=== PATIENT | male | born 1960 | race Caucasian/White ===

== ENCOUNTER 2019-05-04 22:26 | Observation (INO) | payer OTHER ==
[~2019-05-04] VITALS: Ht 182.9 cm; Wt 132.5 kg
[~2019-05-04 22:26] MED LIST: DEXT30TA2 PO; METO100T5 PO; methadone PO; tums
--- NOTE | 2019-05-04 22:37 | PHYS DOC ---
Past History Past Medical History: CAD, GERD, High Cholesterol, Hypertension, Other Past Surgical History: Angioplasty, Tonsillectomy Smoking: Cigarettes, Greater than 1 pack/day Alcohol Use: None Drug Use: None Adult General Chief Complaint Chief Complaint: CHEST PAIN.. " I ve been having some discomfort the last two days... but tonight it was more uncomfortable... I had some stents .. two placed... at [facility].. Dr Wilson...maybe 4 to 5 yrs ago.. I think in the Lt big ve ssel... But has not had any problems,,,... the taking a daily aspirin but haven't done that.... I did quit smoking..." HPI HPI Patient is a 58 year old male who presents with above hx and complaints of chest pain. Chest pain is somewhat central. No radiation to the neck or shoulder. Patient denies any trauma. Patient does have a history of hypertension and elevated lipids. No recent travel outside can see area. No history immunosuppression. Normally follows with Dr. Lay. Has follow with the cardiac group at [facility]. Review of Systems Review of Systems Constitutional: Denies fever or chills [] Eyes: Denies change in visual acuity, redness, or eye pain [] HENT: Denies nasal congestion or sore throat [] Respiratory: Denies cough or shortness of breath [] Cardiovascular: No additional information not addressed in HPI [] GI: Denies abdominal pain, nausea, vomiting, bloody stools or diarrhea [] : Denies dysuria or hematuria [] Musculoskeletal: Denies back pain or joint pain [] Integument: Denies rash or skin lesions [] Neurologic: Denies headache, focal weakness or sensory changes [] Endocrine: Denies polyuria or polydipsia [] All other systems were reviewed and found to be within normal limits, except as documented in this note. Family History Family History Noncontributory to presentation- history of hypertension Current Medications Current Medications See nursing for home meds Allergies Allergies Allergies Coded Allergies Type Severity Reaction Last Updated Verified No Known Drug Allergies 03/03/13 No Physical Exam Physical Exam Constitutional: Moderate acute distress, non-toxic appearance. Rates chest discomfort at 4 HENT: Normocephalic, atraumatic, bilateral external ears normal, oropharynx moist, no oral exudates, nose normal. [] Eyes: PERRLA, EOMI, conjunctiva normal, no discharge. [] Neck: Normal range of motion, no tenderness, supple, no stridor. [] Cardiovascular:Heart rate regular rhythm, no murmur [PMI slightly to left. Does have occasional multifocal PVCs on monitor and occasional dropped conduction equal/ventricle on the bedside monitor.. Lungs & Thorax: Bilateral breath sounds equal at apex on auscultation [] Abdomen: Bowel sounds normal, soft, no tenderness, no masses, no pulsatile masses. [] Obese. Skin: Warm, dry, no erythema, no rash. [] Back: No tenderness, no CVA tenderness. [] Extremities: No tenderness, no cyanosis, no clubbing, ROM intact, no edema. [] No cording in legs. Neurologic: Alert and oriented X 3, normal motor function, normal sensory function, no focal deficits noted. [] Psychologic: Affect anxious, judgement normal, mood normal. [] EKG EKG I interpretation EKG shows a sinus rhythm at 74 bpm. Does have left axis. An anterior fascicular block. But no findings acute STEMI of contralateral changes.[] Radiology/Procedures Radiology/Procedures [][place] [id number] IMAGING REPORT Signed PATIENT: MARTHA EL ACCOUNT: [id number] : 1960 LOCATION: ER AGE: 58 SEX: M EXAM STATUS: REG ER ORD. PHYSICIAN: YUMIKO SOLO MD REASON: Chest pain, short of air PROCEDURE: CHEST PA & LATERAL Study: CHEST PA LATERAL Indication: Chest pain. Shortness of air. Comparison: 03/03/2013 Findings: Similar configuration of the cardiomediastinal silhouette and tera. The right hemidiaphragm is again noted to be elevated. Streaky densities at both lung bases most typical of atelectasis. No confluent infiltrate. No pleural effusion or pneumothorax. Impression: No acute radiographic abnormality of the chest. Similar prominence of the cardiomediastinal silhouette and asymmetric elevation of the right hemidiaphragm with mild basilar volume loss. Electronically signed by: PABLITO MORTON MD (05/04/2019 11:02 PM) [id number] DICTATED AND SIGNED BY: PABLITO MORTON MD DATE: 05/04/19 CC: ANA LAY MD; YUMIKO SOLO MD ~ Course & Med Decision Making Course & Med Decision Making Pertinent Labs and Imaging studies reviewed. (See chart for details) Heart score equals 5-[address] Garner for cardiology consult. Impression: 1. Chest Pain 2. History of hypertension 3. History of coronary artery disease-stents 2 4. Elevated glucose-and 164 5. Hypo-magnesium 1.7 Note there could be Omissions duplications because of computer shut down during processing and treatment of this patient. [] Dragon Disclaimer Dragon Disclaimer This electronic medical record was generated, in whole or in part, using a voice recognition dictation system. Departure Departure: Disposition: 01 HOME/RESIDENCE PRIOR TO ADM Condition: STABLE Referrals: ANA LAY MD (PCP) Dragon Disclaimer This chart was dictated in whole or in part using Voice Recognition software in a busy, high-work load, and often noisy Emergency Department environment. It may contain unintended and wholly unrecognized errors or omissions. YUMIKO SOLO MD May 04, 2019 22:37
[2019-05-04] MEDS ORDERED: ASPIRIN 81 MG TAB.CHEW PO ONE (22:45)
[2019-05-04] MEDS ORDERED: ENOXAPARIN ** NOTE DOSE ** SYRINGE SQ ONE (23:00)
--- NOTE | 2019-05-04 23:05 | RAD ---
Study: CHEST PA LATERAL Indication: Chest pain. Shortness of air. Comparison: 03/03/2013 Findings: Similar configuration of the cardiomediastinal silhouette and tera. The right hemidiaphragm is again noted to be elevated. Streaky densities at both lung bases most typical of atelectasis. No confluent infiltrate. No pleural effusion or pneumothorax. Impression: No acute radiographic abnormality of the chest. Similar prominence of the cardiomediastinal silhouette and asymmetric elevation of the right hemidiaphragm with mild basilar volume loss. Electronically signed by: PABLITO MORTON MD (05/04/2019 11:02 PM) [id number]
[2019-05-04 23:10] LABS: BASO # 0.1 x10^3/uL (0.0-0.2); BASO % 1 % (0-3); EOS # 0.2 x10^3/uL (0.0-0.7); EOS % 3 % (0-3); HEMATOCRIT 49.5 % (39.0-53.0); HEMOGLOBIN 16.9 g/dL (13.0-17.5); LYMPH % 31 % (24-48); MEAN CORPUSCULAR HEMOGLOBIN 31 pg (25-35); MEAN CORPUSCULAR HGB CONC 34 g/dL (31-37); MEAN CORPUSCULAR VOLUME 91 fL (79-100); MONO # 0.6 x10^3/uL (0.0-1.1); MONO % 7 % (0-9); NEUT # 5.9 x10^3uL (1.8-7.7); NEUT % 60 % (31-73); PLATELET COUNT 233 x10^3/uL (140-400); RED BLOOD COUNT 5.43 x10^6/uL (4.30-5.70); RED CELL DISTRIBUTION WIDTH 14.4 % (11.5-14.5); WHITE BLOOD COUNT 9.8 x10^3/uL (4.0-11.0)
[2019-05-04 23:18] LABS: CREATININE 1.3 mg/dL (0.7-1.3); GFR 56.7; POTASSIUM 4.1 mmol/L (3.5-5.1)
[2019-05-04] MEDS ORDERED: NITROGLYCERIN OINT 1 GM PACKET. TP ONE (23:30)
[2019-05-04] MEDS ORDERED: FAMOTIDINE 20 MG/2 ML VIAL IVP ONE (23:30)
[2019-05-04 23:32] LABS: ALBUMIN 3.7 g/dL (3.4-5.0); DIRECT BILIRUBIN 0.1 mg/dL (0.0-0.2); MAGNESIUM 1.7 mg/dL (1.8-2.4); TOTAL BILIRUBIN 0.4 mg/dL (0.2-1.0); TOTAL PROTEIN 7.2 g/dL (6.4-8.2)
[2019-05-04] MEDS: IV RINGERS SOLUTION,LACTATED 1,000 ML IV SCH (23:33)
--- NOTE | 2019-05-04 23:41 | EKG ---
[address] [address] Test Date: 2019-05-04 Test Time: 22:36:20 Pat Name: MARTHA EL Department: Room: Gender: M [employer] Worker: : 1960 Requested By: YUMIKO SOLO Order Number: [id number] Reading MD: Measurements Intervals [place] Rate: 74 P: 56 CT: 178 QRS: -70 QRSD: 108 T: 2 QT: 390 QTc: 438 Interpretive Statements SINUS RHYTHM ABNORMAL LEFT AXIS DEVIATION R-S TRANSITION ZONE IN V LEADS DISPLACED TO THE LEFT LEFT ANTERIOR FASCICULAR BLOCK QRS(T) CONTOUR ABNORMALITY CONSIDER INFERIOR INFARCT ABNORMAL ECG RI6.01 No previous ECG available for comparison
[2019-05-04 23:58] LABS: BARBITURATES NEG (NEG); BENZODIAZEPINES NEG (NEG); CANNABINOIDS NEG (NEG); COCAINE NEG (NEG); METHADONE NEG (NEG); OPIATES NEG (NEG); PHENCYCLIDINE NEG (NEG)
[2019-05-04 23:59] LABS: BACTERIA,URINE 0 /HPF (0-FEW); BILIRUBIN,URINE NEG (NEG); CLARITY,URINE CLEAR; COLOR,URINE YELLOW; GLUCOSE,URINE 100 mg/dL (NEG); NITRITE,URINE NEG (NEG); RBC,URINE 0 /HPF (0-2); SQUAMOUS EPITHELIAL CELL,UR FEW /LPF; UROBILINOGEN,URINE 0.2 mg/dL (0.2 mg/dL); WBC,URINE OCC /HPF (0-4)
[2019-05-05] MEDS ORDERED: MORPHINE SULFATE 2 MG/ML DISP.SYRIN. IVP PRN
[2019-05-05] MEDS ORDERED: ONDANSETRON PF 4 MG/2 ML VIAL. IVP PRN
[2019-05-05] MEDS ORDERED: ACETAMINOPHEN 325 MG TABLET PO PRN
[2019-05-05] MEDS ORDERED: MAGNESIUM SULFATE 2GM 50 ML IV ONE
[2019-05-05 00:02] LABS: AMPHETAMINE/METHAMPHETAMINE NEG (NEG)
[2019-05-05] MEDS: IV RINGERS SOLUTION,LACTATED 1,000 ML IV SCH (00:12)
[2019-05-05] MEDS ORDERED: MORPHINE SULFATE 2 MG/ML DISP.SYRIN. ONE (00:15)
[2019-05-05 01:22] VITALS: BP 128/77
[2019-05-05] MEDS ORDERED: ATORVASTATIN CA80 MG PO (02:25)
[2019-05-05] MEDS ORDERED: SITA1TAB11 PO (02:25)
[2019-05-05] MEDS ORDERED: TEST200V3 IM (02:25)
[2019-05-05] MEDS ORDERED: METO25TA4 PO (02:25)
[2019-05-05] MEDS ORDERED: IPRATRPIUM/ALBUTEROL 0.5/2.5MG 3 ML NEBU. ONE (05:14)
[2019-05-05 05:26] VITALS: BP 138/78
[2019-05-05] MEDS ORDERED: NITROGLYCERIN OINT 1 GM PACKET. TP ONE (06:00)
[2019-05-05 06:19] LABS: BASO # 0.1 x10^3/uL (0.0-0.2); BASO % 1 % (0-3); EOS # 0.3 x10^3/uL (0.0-0.7); EOS % 3 % (0-3); HEMATOCRIT 46.6 % (39.0-53.0); HEMOGLOBIN 16.2 g/dL (13.0-17.5); LYMPH # 3.8 x10^3/uL (1.0-4.8); LYMPH % 41 % (24-48); MEAN CORPUSCULAR HEMOGLOBIN 32 pg (25-35); MEAN CORPUSCULAR HGB CONC 35 g/dL (31-37); MEAN CORPUSCULAR VOLUME 92 fL (79-100); MONO # 0.5 x10^3/uL (0.0-1.1); MONO % 6 % (0-9); NEUT # 4.6 x10^3uL (1.8-7.7); NEUT % 50 % (31-73); PLATELET COUNT 201 x10^3/uL (140-400); RED BLOOD COUNT 5.06 x10^6/uL (4.30-5.70); RED CELL DISTRIBUTION WIDTH 14.2 % (11.5-14.5); WHITE BLOOD COUNT 9.3 x10^3/uL (4.0-11.0)
[2019-05-05 06:26] LABS: CALCIUM 8.4 mg/dL (8.5-10.1); CREATININE 1.4 mg/dL (0.7-1.3); GFR 52.1; POTASSIUM 3.8 mmol/L (3.5-5.1)
--- NOTE | 2019-05-05 07:55 | PDOC2 ---
JANET LUKE SLAB MILLER OPERATOR 05/05/19 0755: CARDIAC CONSULT DATE OF CONSULT Date Of Consult DATE: 05/05/19 TIME: 07:51 REASON FOR CONSULT Reason for Consult Chest pain HTN CAD REFERRING PHYSICIAN Referring Physician Dr. Naidu SOURCE Source: Chart review, Patient HPI History of Present Illness This is a 58 yo female who presented secondary to chest pain. Patient reports he has been experiencing intermittent central chest pressure for the last 2 days. F requency has been increasing. No specific worsening or exacerbating factors. Pain resolved within a minute or two without intervention. No associated shortness of breath, dizziness, diaphoresis, palpitations, or nausea/vomiting. Patient has a history of CAD s/p PCI/stents in 2013. Previously followed with Dr. Damon. Has not seen water pump assembler or had any cardiac workup since 2014. Patient reports pain to be similar to what he experienced in 2013 when he had PCI/stents. PAST MEDICAL HISTORY Cardiovascular: CAD, HTN Pulmonary: Other (MARIO) GI: GERD Rheumatologic: Gout Endocrine: Diabetes PAST SURGICAL HISTORY Past Surgical History: Tonsillectomy FAMILY HISTORY Family History: Cancer, Heart Disease SOCIAL HISTORY Smoke: No ALCOHOL: none Drugs: None CURRENT MEDICATIONS Current Medications Current Medications Aspirin (Children'S Aspirin) 324 mg 1X ONCE PO Last administered on 05/04/19at 23:33; Start 05/04/19 at 22:45; Stop 05/04/19 at 22:51; Status DC Lactated Ringer's 1,000 ml @ 100 mls/hr Q10H IV Last administered on 05/05/19at 00:12; Start 05/04/19 at 22:38; Stop 05/05/19 at 08:37 Enoxaparin Sodium (Lovenox 120mg Syringe) 120 mg 1X ONCE SQ Last administered on 05/04/19at 23:33; Start 05/04/19 at 23:00; Stop 05/04/19 at 23:01; Status DC Famotidine (Pepcid Vial) 20 mg 1X ONCE IVP Last administered on 05/04/19at 23:33; Start 05/04/19 at 23:30; Stop 05/04/19 at 23:31; Status DC Nitroglycerin (Nitro-Bid Oint) 0.5 inch 1X ONCE TP Last administered on 05/04/19at 23:34; Start 05/04/19 at 23:30; Stop 05/04/19 at 23:31; Status DC Ondansetron HCl (Zofran) 4 mg PRN Q4HRS PRN IVP NAUSEA/VOMITING; Start 05/05/19 at 00:00; Stop 05/05/19 at 23:59 Morphine Sulfate (Morphine 2mg Syringe) 2 mg PRN Q3HRS PRN IVP PAIN Last administered on 05/05/19at 00:32; Start 05/05/19 at 00:00; Stop 05/05/19 at 23:59 Acetaminophen (Tylenol) 650 mg PRN Q4HRS PRN PO FEVER; Start 05/05/19 at 00:00; Stop 05/05/19 at 23:59 Albuterol/ Ipratropium (Duoneb) 3 ml RTQID NEB Last administered on 05/05/19at 05:26; Start 05/05/19 at 08:00; Stop 05/06/19 at 07:59 Famotidine (Pepcid Vial) 20 mg DAILY IVP ; Start 05/05/19 at 09:00 Magnesium Sulfate 50 ml @ 25 mls/hr 1X ONCE IV Last administered on 05/05/19at 00:12; Start 05/05/19 at 00:00; Stop 05/05/19 at 02:54; Status DC Aspirin (Children'S Aspirin) 81 mg DAILYWBKFT PO ; Start 05/05/19 at 08:00 Nitroglycerin (Nitro-Bid Oint) 0.5 inch Q8HRS ONCE TP Last administered on 05/05/19at 05:31; Start 05/05/19 at 06:00; Stop 05/05/19 at 06:01; Status DC Enoxaparin Sodium (Lovenox 120mg Syringe) 120 mg BID SQ ; Start 05/05/19 at 09:00 Metoprolol Tartrate (Lopressor) 25 mg BID PO ; Start 05/05/19 at 09:00 Atorvastatin Calcium (Lipitor) 80 mg QHS PO ; Start 05/05/19 at 21:00 Non-Formulary Medication (Sitagliptin Phos/Metformin Hcl (Janumet 50-1,000 Mg Tablet)) 1 each DAILY PO ; Start 05/05/19 at 09:00; Stop 05/05/19 at 07:12; Status DC Metformin HCl (Glucophage) 500 mg BIDWMEALS PO ; Start 05/05/19 at 08:00 Linagliptin (Tradjenta) 5 mg DAILY PO ; Start 05/05/19 at 09:00 Active Scripts Active Reported Metoprolol Tartrate 25 Mg Tablet 25 Mg PO BID Atorvastatin Calcium 80 Mg Tablet 80 Mg PO QHS Testosterone Cypionate 200 Mg/1 Ml Vial 1 Ml IM Q2WKS Janumet 50-1,000 Mg Tablet (Sitagliptin Phos/Metformin Hcl) 1 Each Tablet 1 Each PO DAILY ALLERGIES Allergies: Coded Allergies: No Known Drug Allergies (Unverified , 03/03/13) ROS Review of Systems 14 point ROS conducted with pertinent positives noted above in HPI PHYSICAL EXAM General: Alert, Oriented X3, Cooperative, No acute distress HEENT: Atraumatic, Mucous membr. moist/pink Lungs: Clear to auscultation, Normal air movement Heart: Regular rate, Normal S1, Normal S2, Other (2/6 systolic murmur ) Abdomen: Soft, No tenderness Extremities: No edema, Normal pulses Skin: No breakdown Neuro: Normal speech, Sensation intact Psych/Mental Status: Mental status NL, Mood NL MUSCULOSKELETAL: Osteoarthritic changes both hands VITALS Vital Signs Vital Signs Date Time Temp Pulse Resp B/P (MAP) Pulse Ox O2 Delivery O2 Flow Rate FiO2 05/05/19 05:31 61 138/78 05/05/19 05:28 96 Room Air 05/05/19 05:26 97.6 18 LABS LABS Laboratory Tests Test 05/04/19 22:50 05/04/19 23:10 05/05/19 05:44 White Blood Count 9.8 x10^3/uL (4.0-11.0) 9.3 x10^3/uL (4.0-11.0) Red Blood Count 5.43 x10^6/uL (4.30-5.70) 5.06 x10^6/uL (4.30-5.70) Hemoglobin 16.9 g/dL (13.0-17.5) 16.2 g/dL (13.0-17.5) Hematocrit 49.5 % (39.0-53.0) 46.6 % (39.0-53.0) Mean Corpuscular Volume 91 fL (79-100) 92 fL (79-100) Mean Corpuscular Hemoglobin 31 pg (25-35) 32 pg (25-35) Mean Corpuscular Hemoglobin Concent 34 g/dL (31-37) 35 g/dL (31-37) Red Cell Distribution Width 14.4 % (11.5-14.5) 14.2 % (11.5-14.5) Platelet Count 233 x10^3/uL (140-400) 201 x10^3/uL (140-400) Neutrophils (%) (Auto) 60 % (31-73) 50 % (31-73) Lymphocytes (%) (Auto) 31 % (24-48) 41 % (24-48) Monocytes (%) (Auto) 7 % (0-9) 6 % (0-9) Eosinophils (%) (Auto) 3 % (0-3) 3 % (0-3) Basophils (%) (Auto) 1 % (0-3) 1 % (0-3) Neutrophils # (Auto) 5.9 x10^3uL (1.8-7.7) 4.6 x10^3uL (1.8-7.7) Lymphocytes # (Auto) 3.0 x10^3/uL (1.0-4.8) 3.8 x10^3/uL (1.0-4.8) Monocytes # (Auto) 0.6 x10^3/uL (0.0-1.1) 0.5 x10^3/uL (0.0-1.1) Eosinophils # (Auto) 0.2 x10^3/uL (0.0-0.7) 0.3 x10^3/uL (0.0-0.7) Basophils # (Auto) 0.1 x10^3/uL (0.0-0.2) 0.1 x10^3/uL (0.0-0.2) Prothrombin Time 10.2 SEC (9.4-11.4) Prothromb Time International Ratio 1.0 (0.9-1.1) Activated Partial Thromboplast Time 24 SEC (23-33) D-Dimer (Melanie) 0.20 mg/L (0.00-0.50) Sodium Level 141 mmol/L (136-145) 141 mmol/L (136-145) Potassium Level 4.1 mmol/L (3.5-5.1) 3.8 mmol/L (3.5-5.1) Chloride Level 104 mmol/L (98-107) 105 mmol/L (98-107) Carbon Dioxide Level 29 mmol/L (21-32) 29 mmol/L (21-32) Anion Gap 8 (6-14) 7 (6-14) Blood Urea Nitrogen 18 mg/dL (8-26) 17 mg/dL (8-26) Creatinine 1.3 mg/dL (0.7-1.3) 1.4 mg/dL (0.7-1.3) Estimated GFR (Cockcroft-Gault) 56.7 52.1 Glucose Level 164 mg/dL (70-99) 145 mg/dL (70-99) Calcium Level 9.0 mg/dL (8.5-10.1) 8.4 mg/dL (8.5-10.1) Magnesium Level 1.7 mg/dL (1.8-2.4) 2.2 mg/dL (1.8-2.4) Total Bilirubin 0.4 mg/dL (0.2-1.0) Direct Bilirubin 0.1 mg/dL (0.0-0.2) Aspartate Amino Transf (AST/SGOT) 21 U/L (15-37) Alanine Aminotransferase (ALT/SGPT) 37 U/L (16-63) Alkaline Phosphatase 64 U/L (46-116) Creatine Kinase 119 U/L (39-308) Troponin I Quantitative < 0.017 ng/mL (0-0.055) YN-Adx-I-Type Natriuretic Peptide 30 pg/mL (0-124) Total Protein 7.2 g/dL (6.4-8.2) Albumin 3.7 g/dL (3.4-5.0) Lipase 109 U/L (73-393) Urine Collection Type Unknown Urine Color Yellow Urine Clarity Clear Urine pH 5.0 Urine Specific [place] 1.025 Urine Protein Neg (NEG-TRACE) Urine Glucose (UA) 100 mg/dL (NEG) Urine Ketones (Stick) Neg mg/dL (NEG) Urine Blood Neg (NEG) Urine Nitrite Neg (NEG) Urine Bilirubin Neg (NEG) Urine Urobilinogen Dipstick 0.2 mg/dL (0.2 mg/dL) Urine Leukocyte Esterase Neg (NEG) Urine RBC 0 /HPF (0-2) Urine WBC Occ /HPF (0-4) Urine Squamous Epithelial Cells Few /LPF Urine Bacteria 0 /HPF (0-FEW) Urine Opiates Screen Neg (NEG) Urine Methadone Screen Neg (NEG) Urine Barbiturates Neg (NEG) Urine Phencyclidine Screen Neg (NEG) Urine Amphetamine/Methamphetamine Neg (NEG) Urine Benzodiazepines Screen Neg (NEG) Urine Cocaine Screen Neg (NEG) Urine Cannabinoids Screen Neg (NEG) Urine Ethyl Alcohol Neg (NEG) ECHOCARDIOGRAM Echocardiogram <Conclusion> The left ventricle is normal size. The left ventricular systolic function is normal and the ejection fraction is within normal range. The Ejection Fraction is 50-55%. There is no significant aortic valvular stenosis. Doppler and Color Flow revealed no significant aortic regurgitation. Doppler and Color Flow revealed no mitral valve regurgitation noted. Doppler and Color Flow revealed no tricuspid valve regurgitation noted. There is no evidence of significant pericardial effusion. DATE: 07/06/14 1136 HEART CATH Heart Cath ANGIOGRAPHIC FINDINGS: 1. Right dominant system is noted. 2. Left main is free of any critical disease. This then gives off an LAD, which is a medium to large sized vessel, two ramus intermedius vessels, and a large sized circumflex vessel. 3. The left anterior descending artery has minor luminal irregularities proximally in the mid segment just at the bifurcation of a fairly large diagonal vessel. There is a 99% stenosis and a soft block rupture is noted with a small amount of thrombus. Distal to that, ESTELA flow is 2. The diagonal that comes off at the same point is noted to have a long 70% stenosis with an 80% focal lesion within it. Distally, this diagonal is a large branching vessel. 4. Circumflex is a large vessel. The proximal circumflex is free of any critical stenosis. It gives off a very large first obtuse marginal branch with a 60% lesion in the proximal to mid segment. Distal to that, minor luminal irregularities are noted with small vessel disease. Mid circumflex has minor luminal irregularities followed by a 40 to 50% stenosis at a branch point. Distal to that, [id number] disease is noted without any critical stenosis. 5. The right coronary artery is a codominant vessel with a mild amount of disease noted. There is a 60% lesion noted in the small PDA. CONCLUSION: 1. Three-vessel coronary artery disease. 2. Moderate disease of PDA and moderate to severe disease of obtuse marginal one. 3. Critical 99% stenosis of mid LAD and diagonal vessel. 4. Status post successful complex bifurcation stenting of LAD and diagonal vessel with drug-eluting stents. RECOMMENDATIONS: 1. Continue dual antiplatelet therapy long-term if possible. 2. Statin therapy. 3. Smoking cessation. 4. Hypertension management. 5. Diet, exercise, and cardiac rehab will be offered to the patient. <Conclusion> Detailed cath report dictated 99% mid LAD with soft plaque rupture, 90-99% stenosis and 70% diagonal branch lesion LAD with diagonal bifurcatiion stenting with KIESHA (3.5X23 ) in LAD and ( 2.5x18) in diagonal DAPT RF modification and smoking cessation DATE: 03/03/13 1616 ASSESSMENT/PLAN Assessment/Plan 1. Chest pain, mixed features. Initial trop negative. Reports pain to be similar to what he previously experienced in 2013 2. CAD; s/p PCI/KIESHA to LAD and diagonal branch 2013. Moderate disease of PDA and moderate to severe disease of OM1 noted at that time 3. Hypertension, controlled 4. Hyperlipidemia; statin 5. Diabetes, II 6. NACHO; IVFs 7. Hypomagnesemia; replaced 8. MARIO; intolerant to CPAP Recommendations Trend troponin Echo to assess LV systolic function Lipids Resume secondary prevention Discuss further ischemic workup with stress test versus cardiac cath given presentation and significant history/risk factors. Patient quiet anxious about this pain and would like to proceed with left heart cath for definitive evaluation. R/b/a discussed and he is agreeable to proceed. Keep NPO Will transfer to [facility] for cath this afternoon BRITTA MARTINEZ MD 05/05/19 1441: CARDIAC CONSULT ASSESSMENT/PLAN Assessment/Plan Patient seen and examined. Agree with above nurse practitioner note. Patient underwent cardiac catheterization at [facility]. He had a focal proximal 80% LAD stenosis which was treated. He also has small vessel di sease and a small caliber posterior descending artery. Continue treatment with aspirin and prasugrel JANET LUKE APRN May 05, 2019 07:55 BRITTA MARTINEZ MD May 05, 2019 14:41
[2019-05-05] MEDS ORDERED: metFORMIN 500 MG TABLET PO SCH (08:00)
[2019-05-05] MEDS ORDERED: IPRATRPIUM/ALBUTEROL 0.5/2.5MG 3 ML NEBU. NEB SCH (08:00)
[2019-05-05] MEDS ORDERED: ASPIRIN 81 MG TAB.CHEW PO SCH (08:00)
[2019-05-05] MEDS ORDERED: FAMOTIDINE 20 MG/2 ML VIAL IVP SCH (09:00)
[2019-05-05] MEDS ORDERED: LINAGLIPTIN 5 MG TABLET PO SCH (09:00)
[2019-05-05] MEDS ORDERED: METOPROLOL TART IMMED RELEASE 25 MG TABLET PO SCH (09:00)
[2019-05-05] MEDS ORDERED: ENOXAPARIN ** NOTE DOSE ** SYRINGE SQ SCH (09:00)
[2019-05-05] MEDS ORDERED: NON FORMULARY ITEM (Sitagliptin Phos/Metformin Hcl (Janumet 50-1,000 Mg Tablet) 1 EACH) PO SCH (09:00)
[2019-05-05 09:18] VITALS: BP 138/78
[2019-05-05 14:41] LABS: THYROID STIM HORMONE (TSH) 4.367 uIU/mL (0.358-3.740)
[2019-05-05] MEDS ORDERED: ATORVASTATIN CALCIUM 20 MG TABLET PO SCH (21:00)
== END 2019-05-05 10:02 | disposition short-term general hospital (02) ==
LOC: ER 22:26 → 1 SOUTH 23:30 → INTOOBSV 23:30
PROVIDERS: ADMIT Internal Medicine; ATTEND Internal Medicine
DX: R07.89 Other chest pain (principal); I25.10 Atherosclerotic heart disease of native coronary artery without angina pectoris; K21.9 Gastro-esophageal reflux disease without esophagitis; I10 Essential (primary) hypertension; F17.210 Nicotine dependence, cigarettes, uncomplicated; E83.42 Hypomagnesemia; E78.00 Pure hypercholesterolemia, unspecified; E78.5 Hyperlipidemia, unspecified; E11.51 Type 2 diabetes mellitus with diabetic peripheral angiopathy without gangrene; E11.65 Type 2 diabetes mellitus with hyperglycemia; G47.33 Obstructive sleep apnea (adult) (pediatric); N17.9 Acute kidney failure, unspecified; Z87.891 Personal history of nicotine dependence; Z98.890 Other specified postprocedural states; Z98.61 Coronary angioplasty status
CPT/HCPCS: 36415; 71046; 80048; 80061; 80076; 80307; 81001; 82550; 83690; 83735; 83880; 84443; 84484; 85025; 85379; 85610; 85730; 93005; 94640; 96365; 96366; 96372; 96375; 99284; G0378; J1650; J2270; J3475; J3490; J7120; G0379

== ENCOUNTER → 2020-03-06 | Outpatient (CLI) | payer OTHER ==
[~2020-03-06] MED LIST changes: +ATORVASTATIN CA80 MG PO; +IOHEXOL 350 MG/ML 100 ML VIAL. IV ONE; +METO25TA4 PO; +SITA1TAB11 PO; +TEST200V3 IM
[2020-03-06 12:55] LABS: CREATININE 1.2 mg/dL (0.7-1.3); POTASSIUM 4.1 mmol/L (3.5-5.1)
--- NOTE | 2020-03-06 14:04 | RAD ---
EXAM: CT chest with contrast - pulmonary embolus protocol CLINICAL HISTORY: Reason: CHEST PAIN ON INSPIRATION RECENT CABG / Spl. Instructions: / History: . COMPARISON: None. TECHNIQUE: CT of the chest following the administration of intravenous contrast during the pulmonary arterial phase. Axial, coronal and sagittal reformatted images were generated including MIP images. ---PQRS compliance statement - One or more of the following individualized dose reduction techniques were utilized for this study: 1. Automated exposure control 2. Adjustment of the mA and/or kV according to patient size 3. Use of iterative reconstruction technique--- FINDINGS: CHEST: Diagnostic quality: Suboptimal. Pulmonary emboli: No pulmonary emboli to the level of the lobar branches. More peripheral vessels ar e not well assessed. Right heart strain: None Pulmonary arteries: Normal in caliber. Changes of CABG are seen. Coronary artery calcifications are noted. Trace pericardial effusion. No pleural effusion or pneumothorax. No axillary lymphadenopathy. No mediastinal or hilar lymphadenop athy. Mild infiltration of anterior mediastinum likely from recent CABG. No loculated fluid collectio n is seen. Groundglass solid nodules in the left lower lobe/lingula likely scarring/atelectasis. Bandlike opacit ies are seen in the middle lobe as well consistent with scarring/atelectasis. Visualized Upper abdomen: Upper abdomen is unremarkable. Bones: No aggressive osseous lesion is seen. Changes of median sternotomy are seen. Multifocal degene rative changes are seen, within the spine as well as the sternomanubrial junction. IMPRESSION: 1. Suboptimal contrast bolus. Within these constraints no definite pulmonary embolus is seen to the level of the distal lobar branches. 2. Wedge-shaped opacities particularly in the left lower lobe and lingula as well as the middle lobe likely scarring/atelectasis. 3. Bony and soft tissue changes of CABG are seen. Trace pericardial fluid is likely physiologic. Electronically signed by: Randall Garay MD (03/06/2020 2:01 PM) LUIS A
== END ==
LOC: CT 12:13
PROVIDERS: ATTEND Family Medicine
DX: R91.8 Other nonspecific abnormal finding of lung field (principal); I25.10 Atherosclerotic heart disease of native coronary artery without angina pectoris; R09.1 Pleurisy
CPT/HCPCS: 36415; 71275; 80048; Q9967

== ENCOUNTER 2020-08-11 17:20 | Emergency (ER) | payer OTHER ==
[~2020-08-11] VITALS: Ht 182.9 cm; Wt 132.5 kg
[~2020-08-11 17:20] MED LIST changes: -IOHEXOL 350 MG/ML 100 ML VIAL. IV ONE
--- NOTE | 2020-08-11 17:32 | PHYS DOC ---
Past History Past Medical History: CAD, GERD, High Cholesterol, Hypertension, Other Past Surgical History: Angioplasty, Coronary Bypass Surgery, Tonsillectomy Additional Past Surgical Histo: stents x2 Past Surgical History Umbilicus hernia Smoking: Cigarettes, Greater than 1 pack/day Alcohol Use: None Drug Use: None General Adult HPI: HPI: ". I ve had chest pain this afternoon... I had by pass double in January at [facility]... and Just had umbilicus surgery on Friday... just started my Xarelto.. I am on it for blood clots..." " The pain is more of an ache..." Patient initially seen in the waiting room since no beds available in the emergency department. Patient eventually transferred to room 6# Patient is a 59 year old male who presents with above hx and complaints of chest pain. Pt. localizes chest pain in center of chest. Is been present most of the day. Patient did take his Xarelto and one aspirin before coming to the emergency department. Patient was to start his Xarelto yesterday but had not started because of bleeding at suture sites from his umbilicus hernia repair on Friday. Patient does npt continue to smoke. Patient bypass surgery was completed at [facility] on [address]. Patient denies any trauma. No recent travel. No severe ill contacts. There is strong family hx. of NH 's. Patient has past medical history of GERD, elevated cholesterol, hypertension, tobacco use but he no longer smokes. He is accompanied with his . Pt. follows with Dr. Lay. Review of Systems: Review of Systems: Constitutional: Denies fever or chills Eyes: Denies change in visual acuity HENT: Denies nasal congestion or sore throat Respiratory: Denies cough or shortness of breath Cardiovascular: Complains of chest pain GI: Denies abdominal pain, nausea, vomiting, bloody stools or diarrhea : Denies dysuria Musculoskeletal: Denies back pain or joint pain Integument: Denies rash Neurologic: Denies headache, focal weakness or sensory changes Endocrine: Denies polyuria or polydipsia Lymphatic: Denies swollen glands Psychiatric: Denies depression or anxiety Family History: Family History: Father NH age 48, Mother had Stents Current Medications: Current Meds: See nursing for home meds Allergies: Allergies: Allergies Coded Allergies Type Severity Reaction Last Updated Verified No Known Drug Allergies 03/03/13 No Physical Exam: PE: Constitutional: Mild distress, non-toxic appearance. [] HENT: Normocephalic, atraumatic, bilateral external ears normal, oropharynx moist, no oral exudates, nose normal. [] Eyes: PERRLA, EOMI, conjunctiva normal, no discharge. [] Neck: Normal range of motion, no tenderness, supple, no stridor. [] Cardiovascular:Heart rate regular rhythm, no murmur, PMI to left Lungs & Thorax: Bilateral breath sounds equal apex and basilar crackles on auscultation [] midline scar. Abdomen: Bowel sounds normal, soft, no tenderness, no masses, no pulsatile masses. Suture lines appear to be stable no active bleeding or infection. Umbilicus hernia repair Skin: Warm, dry, no erythema, no rash. [] Back: No tenderness, no CVA tenderness. [] Extremities: No tenderness, no cyanosis, no clubbing, ROM intact, no edema. No cording in legs. Neurologic: Alert and oriented X 3, normal motor function, normal sensory function, no focal deficits noted. [] Psychologic: Affect anxious, judgement normal, mood normal. [] EKG: EKG: My interpretation of EKG shows a sinus at 68 bpm. Does have left axis deviation and transition zone anterior fascicular block. Nonspecific T wave changes anterior septal leads. No findings of acute STEMI with contralateral changes. Abnormal EKG []1732 My interpretation EKG #2 at 1828 hrs. shows a sinus rhythm at 64 bpm left axis deviation. Anterior fascicular block. No acute interval change.-Abnormal EKG My interpretation EKG #3 at 2047 hrs. shows a sinus rhythm at 63 bpm. Left axis deviation. Anterior fascicular block. Overall morphology is unchanged from prior EKG. Abnormal EKG Radiology/Procedures: Radiology/Procedures: [][address] [address] IMAGING REPORT Signed PATIENT: MARTHA EL ACCOUNT: [id number] : 1960 LOCATION: ER AGE: 59 SEX: M EXAM STATUS: REG ER ORD. PHYSICIAN: YUMIKO SOLO MD REASON: OMNI 350,85ML IV.CP,off anticoagulants for surgery,hx pe PROCEDURE: CT ANGIOGRAPHY CHEST Exam: CT of chest with contrast INDICATION: Chest pain, anticoagulation TECHNIQUE: Sequential axial images through the chest obtained following the administration of 85 mL of Omni 350 IV contrast. Sagittal and coronal reformatted images were reconstructed from the axial data and reviewed. 3-D reformatted images were reconstructed from the axial data and reviewed. Exposure: One or more of the following in the visualized dose reduction techniques were utilized for this examination: 1. Automated exposure control 2. Adjustment of the MA and/or KV according to patient size 3. Use of iterative of reconstructive technique Comparisons: Chest x-ray same day FINDINGS: Visualized portions of the thyroid are unremarkable. No enlarged mediastinal lymph nodes are identified. Heart size is normal. No pericardial effusion. Coronary artery calcifications are noted. There is ectasia of the ascending aorta measuring up to 4.0 cm in diameter. Pulmonary artery is not enlarged. No pulmonary embolus identified within the main, lobar or segmental pulmonary arteries. Airways are patent. No consolidation or pneumothorax. No suspicious lung nodules are identified. No pleural effusion or thickening. Visualized upper abdomen is unremarkable. No suspicious osseous lesions or acute fractures. IMPRESSION: 1. No pulmonary embolus identified within the main, lobar or segmental pulmonary arteries. 2. Mild ectasia of the ascending aorta measuring up to 4 cm in diameter. Electronically signed by: Ena Alcantar MD (08/11/2020 7:41 PM) [facility] DICTATED AND SIGNED BY: ENA ALCANTAR MD DATE: 08/11/201935 CC: ANA LAY MD; YUMIKO SOLO MD ~MTH0 [address] [place] [id number] IMAGING REPORT Signed PATIENT: MARTHA EL ACCOUNT: [id number] : 1960 LOCATION: ER AGE: 59 SEX: M EXAM STATUS: REG ER ORD. PHYSICIAN: YUMIKO SOLO MD REASON: CHEST PAIN AND HEADACHE PROCEDURE: CHEST PA & LATERAL EXAM: CHEST 2 VIEWS. HISTORY: Chest pain. COMPARISON: 05/04/2019. FINDINGS: Frontal and lateral views of the chest are obtained. There are changes of coronary artery bypass grafting. There are no confluent infiltrates. There is no pneumothorax or pleural effusion. The heart is not enlarged. IMPRESSION: 1. No confluent infiltrates. Electronically signed by: Dane Hall MD (08/11/2020 5:50 PM) [facility] DICTATED AND SIGNED BY: AYALA HALL MD DATE: 08/11/20 3339 CC: ANA LAY MD; YUMIKO SOLO MD ~MTH0 0 Heart Score: C/O Chest Pain: Yes HEART Score for Chest Pain: HEART Score for Chest Pain Response (Comments) Value History Moderately Suspicious 1 ECG Nonspecific Repolarizatio 1 Age >45 - < 65 1 Risk Factors 1 or 2 Risk Factors 1 Troponin >1-<3x Normal Limit 1 Total 5 Risk Factors: Risk Factors: DM, Current or recent (<one month) smoker, HTN, HLP, family history of CAD, obesity. Risk Scores: Score 0 - 3: 2.5% MACE over next 6 weeks - Discharge Home Score 4 - 6: 20.3% MACE over next 6 weeks - Admit for Clinical Observation Score 7 - 10: 72.7% MACE over next 6 weeks - Early Invasive Strategies Course & Med Decision Making: Course & Med Decision Making Pertinent Labs and Imaging studies reviewed. (See chart for details) Discussed presentation, testing and treatment plan with Dr. Garner and Dr. Tyler cardiology. Transfer patient to [facility] for further evaluation and treatment. No additional anticoagulation at this time. Impression: 1. Chest pain 2. History of coronary disease -status post bypass surgery , and stents x 2 2013 3. DVTs/PEs history 4. Hypomagnesium 1.7 5. Diabetes glucose 127 6. Mild dehydration creatinine 1.4 7. Elevated Trop. 0.017 - repeat 0. 434. [] Dragon Disclaimer: Dragon Disclaimer: This electronic medical record was generated, in whole or in part, using a voice recognition dictation system. Departure Departure: Referrals: ANA LAY MD (PCP) Fady Disclaimer This chart was dictated in whole or in part using Voice Recognition software in a busy, high-work load, and often noisy Emergency Department environment. It may contain unintended and wholly unrecognized errors or omissions. YUMIKO SOLO MD Aug 11, 2020 17:32
[2020-08-11] MEDS: ASPIRIN CHEWABLE 81 MG TABLET. PO ONE (17:45)
--- NOTE | 2020-08-11 17:52 | RAD ---
EXAM: CHEST 2 VIEWS. HISTORY: Chest pain. COMPARISON: 05/04/2019. FINDINGS: Frontal and lateral views of the chest are obtained. There are changes of coronary artery b ypass grafting. There are no confluent infiltrates. There is no pneumothorax or pleural effusion. The heart is not en larged. IMPRESSION: 1. No confluent infiltrates. Electronically signed by: Dane Hall MD (08/11/2020 5:50 PM) [facility]
[2020-08-11 18:09] LABS: BASO # 0.1 x10^3/uL (0.0-0.2); BASO % 1 % (0-3); EOS # 0.5 x10^3/uL (0.0-0.7); EOS % 5 % (0-3); HEMATOCRIT 44.7 % (39.0-53.0); HEMOGLOBIN 15.1 g/dL (13.0-17.5); LYMPH # 2.6 x10^3/uL (1.0-4.8); LYMPH % 28 % (24-48); MEAN CORPUSCULAR HEMOGLOBIN 31 pg (25-35); MEAN CORPUSCULAR HGB CONC 34 g/dL (31-37); MEAN CORPUSCULAR VOLUME 90 fL (79-100); MONO # 0.7 x10^3/uL (0.0-1.1); MONO % 7 % (0-9); NEUT # 5.7 x10^3uL (1.8-7.7); NEUT % 59 % (31-73); PLATELET COUNT 200 x10^3/uL (140-400); RED BLOOD COUNT 4.94 x10^6/uL (4.30-5.70); RED CELL DISTRIBUTION WIDTH 13.7 % (11.5-14.5); WHITE BLOOD COUNT 9.5 x10^3/uL (4.0-11.0)
--- NOTE | 2020-08-11 18:10 | EKG ---
[address] [address] Test Date: 2020-08-11 Test Time: 17:32:28 Pat Name: MARTHA EL Department: Room: Gender: M [employer] Maintenance Inspector: ELISHA : 1960 Requested By: YUMIKO SOLO Order Number: [id number] Reading MD: Saman Tyler MD Measurements Intervals [place] Rate: 68 P: 74 GA: 166 QRS: -62 QRSD: 106 T: 47 QT: 404 QTc: 430 Interpretive Statements SINUS RHYTHM ANTEROLATERAL TWI CHANGES. CONSIDER ISCHEMIA Electronically Signed On 08-12-2020 15:39:51 CDT by Saman Tyler MD
[2020-08-11 18:24] LABS: CREATININE 1.4 mg/dL (0.7-1.3); GFR 51.9; POTASSIUM 4.6 mmol/L (3.5-5.1)
[2020-08-11 18:30] LABS: ALBUMIN 4.1 g/dL (3.4-5.0); DIRECT BILIRUBIN 0.1 mg/dL (0.0-0.2); MAGNESIUM 1.7 mg/dL (1.8-2.4); TOTAL BILIRUBIN 0.6 mg/dL (0.2-1.0); TOTAL PROTEIN 7.2 g/dL (6.4-8.2)
[2020-08-11] MEDS: IV RINGERS SOLUTION,LACTATED 1,000 ML IV SCH (18:31)
--- NOTE | 2020-08-11 18:39 | EKG ---
[address] [address] Test Date: 2020-08-11 Test Time: 18:26:58 Pat Name: MARTHA EL Department: Room: Gender: M Photographic Double: ELISHA : 1960 Requested By: YUMIKO SLOO Order Number: [id number] Reading MD: Saman Tyler MD Measurements Intervals [place] Rate: 64 P: 42 WI: 176 QRS: -64 QRSD: 108 T: 34 QT: 410 QTc: 427 Interpretive Statements SINUS RHYTHM ABNORMAL LEFT AXIS DEVIATION LATERAL ST SEGMENT CHANGES SUGGESTIVE OF ISCHEMIA Electronically Signed On 08-12-2020 15:40:37 CDT by Saman Tyler MD
[2020-08-11] MEDS: MAGNESIUM SULFATE 2GM 50 ML IV ONE (18:58)
[2020-08-11] MEDS: IV RINGERS SOLUTION,LACTATED 1,000 ML IV ONE (19:00)
[2020-08-11] MEDS ORDERED: CONTRAST GIVEN. MC PRN (19:00)
[2020-08-11] MEDS: IOHEXOL 350 MG/ML 100 ML VIAL. IV ONE (19:08)
--- NOTE | 2020-08-11 19:43 | RAD ---
Exam: CT of chest with contrast INDICATION: Chest pain, anticoagulation TECHNIQUE: Sequential axial images through the chest obtained following the administration of 85 mL o f Omni 350 IV contrast. Sagittal and coronal reformatted images were reconstructed from the axial savanna a and reviewed. 3-D reformatted images were reconstructed from the axial data and reviewed. Exposure: One or more of the following in the visualized dose reduction techniques were utilized for this examination: 1. Automated exposure control 2. Adjustment of the MA and/or KV according to patient size 3. Use of iterative of reconstructive technique Comparisons: Chest x-ray same day FINDINGS: Visualized portions of the thyroid are unremarkable. No enlarged mediastinal lymph nodes are identifi ed. Heart size is normal. No pericardial effusion. Coronary artery calcifications are noted. There is ect josh of the ascending aorta measuring up to 4.0 cm in diameter. Pulmonary artery is not enlarged. No pulmonary embolus identified within the main, lobar or segmental pulmonary arteries. Airways are patent. No consolidation or pneumothorax. No suspicious lung nodules are identified. No pleural effusion or thickening. Visualized upper abdomen is unremarkable. No suspicious osseous lesions or acute fractures. IMPRESSION: 1. No pulmonary embolus identified within the main, lobar or segmental pulmonary arteries. 2. Mild ectasia of the ascending aorta measuring up to 4 cm in diameter. Electronically signed by: Ena Cook MD (08/11/2020 7:41 PM) [facility]
[2020-08-11 22:16] LABS: BILIRUBIN,URINE NEG (NEG); CLARITY,URINE CLEAR; COLOR,URINE STRAW; GLUCOSE,URINE NEG (NEG); NITRITE,URINE NEG (NEG); UROBILINOGEN,URINE 0.2 mg/dL (0.2 mg/dL)
[2020-08-11 22:17] LABS: RBC,URINE 0 /HPF (0-2)
[2020-08-11 22:18] LABS: BACTERIA,URINE 0 /HPF (0-FEW); SQUAMOUS EPITHELIAL CELL,UR OCC /LPF; WBC,URINE 0 /HPF (0-4)
[2020-08-11 22:21] LABS: BARBITURATES NEG (NEG); BENZODIAZEPINES NEG (NEG); CANNABINOIDS NEG (NEG); COCAINE NEG (NEG); METHADONE NEG (NEG); OPIATES POS (NEG); PHENCYCLIDINE NEG (NEG)
[2020-08-11 22:49] LABS: AMPHETAMINE/METHAMPHETAMINE NEG (NEG)
[2020-08-11 23:30] VITALS: BP 145/89
--- NOTE | 2020-08-12 21:50 | EKG ---
[address] [address] Test Date: 2020-08-11 Test Time: 20:47:10 Pat Name: MARTHA EL Department: Room: Gender: M Cook Italian Style Food: LAUREN : 1960 Requested By: YUMIKO SOLO Order Number: [id number] Reading MD: Measurements Intervals [place] Rate: 63 P: 38 [place]: 184 QRS: -59 QRSD: 110 T: 49 QT: 430 QTc: 443 Interpretive Statements SINUS RHYTHM ABNORMAL LEFT AXIS DEVIATION R-S TRANSITION ZONE IN V LEADS DISPLACED TO THE LEFT LEFT ANTERIOR FASCICULAR BLOCK INCOMPLETE RIGHT BUNDLE BRANCH BLOCK ABNORMAL ECG RI6.02 No previous ECG available for comparison
== END 2020-08-11 23:42 ==
LOC: ER 17:20
DX: R07.89 Other chest pain (principal); E83.42 Hypomagnesemia; E86.0 Dehydration; R74.8 Abnormal levels of other serum enzymes; R51.9 Headache, unspecified; K21.9 Gastro-esophageal reflux disease without esophagitis; E78.5 Hyperlipidemia, unspecified; I10 Essential (primary) hypertension; F17.210 Nicotine dependence, cigarettes, uncomplicated
CPT/HCPCS: 36415; 71046; 71275; 80048; 80076; 80307; 81001; 82550; 83690; 83735; 83880; 84443; 84484; 85025; 85379; 85610; 85730; 93005; 96365; 96366; 99285; J3475; J7120; Q9967

== ENCOUNTER → 2020-08-16 | Outpatient (CLI) | payer OTHER ==
[2020-08-11 23:30] VITALS: BP 145/89
--- NOTE | 2020-08-16 12:31 | RAD ---
Exam Date: 08/16/2020 9:50 AM XR KNEE 3 VIEWS_RT Indication: Reason: RIGHT KNEE PAIN. NKI / Spl. Instructions: / History: . FINDINGS/ IMPRESSION: Small osteophytes are noted. No acute fracture or dislocation. Alignment and joint spaces are maintained. The soft tissues are w ithin normal limits. Electronically signed by: Prateek Gale MD (08/16/2020 12:29 PM) [id number]
== END ==
LOC: RAD 09:40
PROVIDERS: ATTEND Family Medicine
DX: M25.761 Osteophyte, right knee (principal); M25.561 Pain in right knee
CPT/HCPCS: 73562

== ENCOUNTER → 2020-12-27 | Outpatient (CLI) | payer OTHER ==
--- NOTE | 2020-12-27 16:05 | RAD ---
EXAM: Thoracic spine, 3 views; lumbar spine, 3 views. HISTORY: Pain. COMPARISON: None. FINDINGS: Thoracic spine: 3 views of the thoracic spine are obtained. There is mild S-shaped thoracic scoliosis . There is mild multilevel endplate remodeling. There is evidence of CABG. There is no listhesis. The re is no fracture. Lumbar spine: 3 views of the lumbar spine are obtained. There is no listhesis. There is multilevel en dplate remodeling. There are anterior osteophytes at the lower thoracic and upper and mid lumbar leve ls. There is facet arthropathy at the lower lumbar levels. IMPRESSION: 1. Multilevel degenerative change, described above. 2. No acute osseous finding. Electronically signed by: Sandrita Mandel MD (12/27/2020 4:03 PM) [id number]
== END ==
LOC: RAD 15:16
PROVIDERS: ATTEND Family Medicine
DX: M47.816 Spondylosis without myelopathy or radiculopathy, lumbar region (principal); M47.812 Spondylosis without myelopathy or radiculopathy, cervical region; M41.84 Other forms of scoliosis, thoracic region; M48.8X6 Other specified spondylopathies, lumbar region; M25.78 Osteophyte, vertebrae; Z95.1 Presence of aortocoronary bypass graft
CPT/HCPCS: 72072; 72100